=== PATIENT | male | born 1990 | race Caucasian/White ===

== ENCOUNTER 2020-11-10 10:41 | Emergency (ER) | payer MEDICAID ==
[~2020-11-10] VITALS: Ht 172.7 cm; Wt 79.0 kg
[~2020-11-10 10:41] MED LIST: ALPR1TAB2 PO; GABA-533 MT; HYDR-4001 MT; NAPR-677 MT
[2020-11-10] MEDS ORDERED: MORPHINE SULFATE 4 MG/ML CPJ (NOT FOR IM USE) IV STA (11:00)
[2020-11-10] MEDS ORDERED: ONDANSETRON HCL 4MG/2ML INJ IV STA (11:00)
[2020-11-10] MEDS ORDERED: SODIUM CHLORIDE 0.9% 1,000 ML IV ONE (11:00)
[2020-11-10] MEDS ORDERED: PANTOPRAZOLE SODIUM 40 MG/VIAL IV ONE (11:15)
[2020-11-10 11:34] LABS: HEMATOCRIT. 43.2 % (42.0-52.0); HEMOGLOBIN. 14.9 g/dL (14.0-18.0); MEAN CORPUSCULAR HEMOGLOBIN 33.9 pg (28.0-32.0); MEAN PLATELET VOLUME 8.5 fl (7.4-10.4); PLATELET 206 x1000/uL (130-400); RED CELL DISTRIBUTION WIDTH 13.6 % (11.6-14.6)
[2020-11-10 11:43] LABS: CHLORIDE 104 mEq/L (98-107)
[2020-11-10 11:45] LABS: INR 1.1; PROTHROMBIN TIME 11.4 sec (9.6-11.0)
[2020-11-10 11:53] LABS: ETHANOL BLOOD 153 mg/dL
[2020-11-10 12:34] LABS: PLATELET ESTIMATE NORMAL
[2020-11-10] MEDS ORDERED: IOHEXOL-300 100 ML BOTTLE ONE (13:18)
[2020-11-10] MEDS ORDERED: MORPHINE SULFATE 4 MG/ML CPJ (NOT FOR IM USE) IV ONE ×2 (15:15→16:15)
[2020-11-10] MEDS ORDERED: MAGNESIUM/ALUMINUM HYDROXIDE/SIMETHICONE 30ML UDC PO STA (16:11)
[2020-11-10] MEDS ORDERED: VISCOUS LIDOCAINE 2% 15 ML UDC PO STA (16:11)
[2020-11-10] MEDS ORDERED: PROT40 MT (17:13)
[2020-11-10] MEDS ORDERED: HYDR-4346 MT (17:13)
[2020-11-10] MEDS ORDERED: ONDA4TAB5 MT (17:13)
[2020-11-10 18:20] VITALS: BP 134/85
== END 2020-11-10 18:23 | disposition home or self-care (01) ==
LOC: ER 10:41
DX: F10.229 Alcohol dependence with intoxication, unspecified (principal); R10.13 Epigastric pain; R11.2 Nausea with vomiting, unspecified; R19.09 Other intra-abdominal and pelvic swelling, mass and lump; F12.10 Cannabis abuse, uncomplicated; Y90.6 Blood alcohol level of 120-199 mg/100 ml; Z89.422 Acquired absence of other left toe(s); Z88.8 Allergy status to other drugs, medicaments and biological substances
CPT/HCPCS: 36415; 74177; 80053; 80320; 83690; 85025; 85610; 93005; 96361; 96374; 96375; 96376; 99285; C9113; J2270; J2405; J7030; Q9967; G0480

== ENCOUNTER 2020-12-24 20:58 | Emergency (ER) | payer MEDICAID, OTHER ==
[~2020-12-24] VITALS: Ht 175.3 cm; Wt 79.0 kg
[~2020-12-24 20:58] MED LIST changes: +HYDR-4346 MT; +ONDA4TAB5 MT; +PROT40 MT
[2020-12-24] MEDS ORDERED: MORPHINE SULFATE 4 MG/ML CPJ (NOT FOR IM USE) IV STA (23:20)
[2020-12-24] MEDS ORDERED: FAMOTIDINE 20MG/2ML VIAL IV STA (23:20)
[2020-12-24] MEDS ORDERED: ONDANSETRON HCL 4MG/2ML INJ IV STA (23:20)
[2020-12-24] MEDS ORDERED: SODIUM CHLORIDE 0.9% 1,000 ML IV ONE (23:30)
[2020-12-24 23:47] LABS: CLARITY URINE CLEAR (CLEAR); COLOR URINE ORANGE (YELLOW); KETONES URINE 2+ (NEGATIVE); LEUKOCYTE ESTERASE URINE TRACE (NEGATIVE); NITRITE URINE NEGATIVE (NEGATIVE); OCCULT BLOOD URINE 1+ (NEGATIVE); PROTEIN URINE 3+ (NEGATIVE); SPECIFIC GRAVITY URINE 1.032 (1.005-1.030)
[2020-12-25 00:27] LABS: BASOPHILS % 0.7 % (0.0-2.0); EOSINOPHILS % 0.3 % (0.0-5.0); HEMATOCRIT. 41.8 % (42.0-52.0); HEMOGLOBIN. 14.2 g/dL (14.0-18.0); LYMPHOCYTES % 12.1 % (20.0-50.0); MEAN CORPUSCULAR HEMOGLOBIN 33.6 pg (28.0-32.0); MEAN CORPUSCULAR VOLUME 99.1 fL (80.0-94.0); MEAN PLATELET VOLUME 9.1 fl (7.4-10.4); MONOCYTES % 12.6 % (2.0-8.0); NEUTROPHILS % 74.3 % (40.0-76.0); PLATELET 133 x1000/uL (130-400); RED BLOOD CELL COUNT 4.22 mill/uL (4.7-6.1); RED CELL DISTRIBUTION WIDTH 12.8 % (11.6-14.6)
[2020-12-25 00:34] LABS: CHLORIDE 98 mEq/L (98-107)
[2020-12-25] MEDS ORDERED: IBUP-2029 MT (03:33)
[2020-12-25 04:28] VITALS: BP 151/88
== END 2020-12-25 04:30 | disposition home or self-care (01) ==
LOC: ER 20:58
DX: K85.90 Acute pancreatitis without necrosis or infection, unspecified (principal); R11.2 Nausea with vomiting, unspecified; F12.10 Cannabis abuse, uncomplicated; Z98.890 Other specified postprocedural states; Z89.432 Acquired absence of left foot; Z79.899 Other long term (current) drug therapy; Z88.8 Allergy status to other drugs, medicaments and biological substances
CPT/HCPCS: 36415; 80053; 81003; 83690; 85025; 93005; 96361; 96374; 96375; 99284; J2270; J2405; J3490; J7030

== ENCOUNTER 2021-02-07 11:00 | Emergency (ER) | payer MEDICAID ==
[~2021-02-07] VITALS: Ht 167.6 cm; Wt 73.0 kg
[~2021-02-07 11:00] MED LIST changes: +IBUP-2029 MT
[2021-02-07] MEDS ORDERED: SODIUM CHLORIDE 0.9% 1,000 ML IV ONE ×2 (11:30→13:00)
[2021-02-07 12:01] LABS: BASOPHILS % 1.1 % (0.0-2.0); HEMOGLOBIN. 16.2 g/dL (14.0-18.0); LYMPHOCYTES % 33.5 % (20.0-50.0); MEAN CORPUSCULAR HEMOGLOBIN 34.1 pg (28.0-32.0); MEAN CORPUSCULAR VOLUME 96.8 fL (80.0-94.0); MEAN PLATELET VOLUME 7.6 fl (7.4-10.4); MONOCYTES % 4.2 % (2.0-8.0); NEUTROPHILS % 60.2 % (40.0-76.0); PLATELET 500 x1000/uL (130-400); RED BLOOD CELL COUNT 4.75 mill/uL (4.7-6.1); RED CELL DISTRIBUTION WIDTH 12.4 % (11.6-14.6)
[2021-02-07 12:09] LABS: CHLORIDE 109 mEq/L (98-107)
[2021-02-07 12:10] LABS: INR 1.1; PROTHROMBIN TIME 12.1 sec (9.6-11.0)
[2021-02-07 12:25] LABS: ETHANOL BLOOD 461 mg/dL
[2021-02-07] MEDS ORDERED: IOHEXOL-300 100 ML BOTTLE ONE (15:19)
[2021-02-07] MEDS ORDERED: ACETAMINOPHEN 500MG TABLET PO NR (16:00)
[2021-02-07] MEDS ORDERED: PIPERACILLIN/TAZ 3.375G PREMIX 50 ML IV ONE (16:00)
[2021-02-07] MEDS ORDERED: VANCOMYCIN 1 G PREMIX 200 ML IV NR (17:00)
[2021-02-07] MEDS ORDERED: IBUPROFEN 600MG TABLET PO ONE (22:15)
[2021-02-07 22:50] VITALS: BP 132/81
== END 2021-02-07 23:08 | disposition short-term general hospital (02) ==
LOC: ER 11:00
DX: T81.43XA Infection following a procedure, organ and space surgical site, initial encounter (principal); F10.229 Alcohol dependence with intoxication, unspecified; Z90.411 Acquired partial absence of pancreas; Z20.822 Contact with and (suspected) exposure to COVID-19; Y90.8 Blood alcohol level of 240 mg/100 ml or more; Y83.8 Other surgical procedures as the cause of abnormal reaction of the patient, or of later complication, without mention of misadventure at the time of the procedure; Y92.018 Other place in single-family (private) house as the place of occurrence of the external cause
CPT/HCPCS: 36415; 74177; 80053; 80320; 83605; 83690; 85025; 85610; 87040; 87426; 96361; 96365; 96367; 99285; J2543; J3370; J7030; Q9967; Z7610; G0480

== ENCOUNTER 2021-11-26 15:02 | Emergency (ER) | payer OTHER ==
[~2021-11-26] VITALS: Ht 175.3 cm; Wt 61.0 kg
[2021-11-26] MEDS ORDERED: SODIUM CHLORIDE 0.9% 1,000 ML IV ONE (16:45)
[2021-11-26 17:03] LABS: BG BASE EXCESS -8.8 mmol/L (-2.0-2.0); BG CARBOXYHEMOGLOBIN 0.3 % (0.5-1.5); BG DEOXYHEMOGLOBIN 2.5 % (0.0-5.0); BG HCO3 ACT 14.1 mmol/L (22.0-26.0); BG METHEMOGLOBIN 0.3 % (0.0-1.5); BG OXYGEN SATURATION 97.5 % (92.0-98.5); BG OXYHEMOGLOBIN 96.9 % (94.0-97.0); BG PCO2 23.7 mmHg (35.0-45.0); BG PH 7.393 (7.350-7.450); BG PO2 101.8 mmHg (75.0-100.0); BG SAMPLE SITE LEFT BRACHIAL; BG TOTAL HEMOGLOBIN 13.3 g/dL (12.0-18.0); BG VENT MODE ROOM AIR
[2021-11-26 17:15] LABS: BASOPHILS % 0.7 % (0.0-2.0); EOSINOPHILS % 0.4 % (0.0-5.0); HEMATOCRIT. 37.5 % (42.0-52.0); HEMOGLOBIN. 13.3 g/dL (14.0-18.0); MEAN CORPUSCULAR HEMOGLOBIN 33.2 pg (28.0-32.0); MEAN CORPUSCULAR VOLUME 93.4 fL (80.0-94.0); MEAN PLATELET VOLUME 9.5 fl (7.4-10.4); MONOCYTES % 8.1 % (2.0-8.0); NEUTROPHILS % 64.8 % (40.0-76.0); PLATELET 253 x1000/uL (130-400); RED BLOOD CELL COUNT 4.02 mill/uL (4.7-6.1); RED CELL DISTRIBUTION WIDTH 12.1 % (11.6-14.6)
[2021-11-26 17:17] LABS: CLARITY URINE CLEAR (CLEAR); COLOR URINE YELLOW (YELLOW); KETONES URINE 4+ (NEGATIVE); LEUKOCYTE ESTERASE URINE NEGATIVE (NEGATIVE); NITRITE URINE NEGATIVE (NEGATIVE); OCCULT BLOOD URINE NEGATIVE (NEGATIVE); PH URINE 5.5 (4.5-8.0); PROTEIN URINE TRACE (NEGATIVE); SPECIFIC GRAVITY URINE 1.033 (1.005-1.030); UROBILINOGEN URINE 0.2 E.U./dL (0.2-1.0)
[2021-11-26 17:23] LABS: CHLORIDE 100 mEq/L (98-107)
[2021-11-26 17:29] LABS: PHOSPHORUS 1.6 mg/dL (2.5-4.9)
[2021-11-26] MEDS ORDERED: POTASSIUM-SODIUM PHOSPHATE POWDER PACKET PO NR (17:45)
[2021-11-26] MEDS ORDERED: MAGNESIUM 1 G PREMIX 100 ML IV NR (17:45)
[2021-11-26] MEDS ORDERED: HYDROCODONE/ACETAMINOPHEN 5/325MG TABLET PO NR (17:45)
[2021-11-26 18:56] VITALS: BP 116/74
== END 2021-11-26 19:19 | disposition home or self-care (01) ==
LOC: ER 15:02
DX: E11.65 Type 2 diabetes mellitus with hyperglycemia (principal); F12.10 Cannabis abuse, uncomplicated; Z88.1 Allergy status to other antibiotic agents; Z79.899 Other long term (current) drug therapy; Z98.890 Other specified postprocedural states
CPT/HCPCS: 36415; 36600; 80053; 81003; 82375; 82805; 82962; 83735; 84100; 85025; 96365; 99284; J3475; J7030

== ENCOUNTER 2024-03-18 17:53 | Emergency (ER) | payer OTHER ==
[~2024-03-18] VITALS: Ht 170.2 cm; Wt 81.0 kg
[~2024-03-18 17:53] MED LIST changes: -GABA-533 MT; +GABA-534 MT
[2024-03-18 17:58] VITALS: O2SAT 96
[2024-03-18] MEDS: SODIUM CHLORIDE 0.9% 1,000 ML IV ONE (18:42)
[2024-03-18 19:29] VITALS: BP 141/80
[2024-03-18 20:15] LABS: BASOPHILS % 0.5 % (0.0-2.0); EOSINOPHILS % 0.3 % (0.0-5.0); HEMATOCRIT. 48.2 % (42.0-52.0); HEMOGLOBIN. 16.2 g/dL (14.0-18.0); LYMPHOCYTES % 22.1 % (20.0-50.0); MEAN CORPUSCULAR HEMOGLOBIN 31.5 pg (28.0-32.0); MEAN CORPUSCULAR HGB CONC 33.6 g/dL (31.0-37.0); MEAN CORPUSCULAR VOLUME 93.8 fL (80.0-94.0); MEAN PLATELET VOLUME 8.3 fl (7.4-10.4); MONOCYTES % 3.7 % (2.0-8.0); NEUTROPHILS % 73.4 % (40.0-76.0); PLATELET 260 x1000/uL (130-400); RED BLOOD CELL COUNT 5.14 mill/uL (4.7-6.1); RED CELL DISTRIBUTION WIDTH 12.9 % (11.6-14.6); WHITE BLOOD COUNT 7.6 x1000/uL (4.5-11.0)
[2024-03-18 20:18] LABS: CHLORIDE 99 mEq/L (98-107); POTASSIUM 4.5 mEq/L (3.5-5.1); SODIUM 137 mEq/L (136-145)
[2024-03-18 20:19] LABS: CALCIUM 9.5 mg/dL (8.7-10.4); CARBON DIOXIDE 23 mEq/L (21-32)
[2024-03-18 20:24] LABS: GLUCOSE 292 mg/dL (70-105); UREA NITROGEN BLOOD 6 mg/dL (9-23)
[2024-03-18 20:27] LABS: TROPONIN I HIGH SENSITIVITY < 4 ng/L (3.0-53)
[2024-03-18 20:34] LABS: ETHANOL BLOOD 359 mg/dL (<10)
[2024-03-18 21:40] VITALS: PULSE 91; RESP 16; TEMP 98.2
== END 2024-03-18 21:42 | disposition home or self-care (01) ==
LOC: ER 18:03
DX: R41.82 Altered mental status, unspecified (principal); E11.9 Type 2 diabetes mellitus without complications; F12.10 Cannabis abuse, uncomplicated; Z79.899 Other long term (current) drug therapy
CPT/HCPCS: 80048; 80320; 83880; 85025; 84484; 36415; 71045; 93005; 96360; 96361; 99285; J7030; Z7610 ×3; G0480

== ENCOUNTER 2024-08-31 10:01 | Emergency (ER) | payer OTHER ==
[~2024-08-31] VITALS: Ht 177.8 cm; Wt 87.0 kg
[~2024-08-31 10:01] MED LIST changes: -HYDR-4346 MT; -IBUP-2029 MT; +INSU100I28 SQ; -NAPR-677 MT; -ONDA4TAB5 MT
[2024-08-31 10:08] VITALS: O2SAT 100
[2024-08-31] MEDS ORDERED: IOHEXOL-350 100 ML BOTTLE ONE (10:39)
[2024-08-31 11:01] VITALS: TEMP 36.94740
[2024-08-31 11:01] LABS: BASOPHILS % 0.8 % (0.0-2.0); EOSINOPHILS % 2.9 % (0.0-5.0); HEMOGLOBIN. 16.7 g/dL (14.0-18.0); LYMPHOCYTES % 25.3 % (20.0-50.0); MEAN CORPUSCULAR HEMOGLOBIN 31.9 pg (28.0-32.0); MEAN CORPUSCULAR HGB CONC 33.4 g/dL (31.0-37.0); MEAN CORPUSCULAR VOLUME 95.5 fL (80.0-94.0); MEAN PLATELET VOLUME 8.4 fl (7.4-10.4); MONOCYTES % 4.5 % (2.0-8.0); NEUTROPHILS % 66.5 % (40.0-76.0); PLATELET 242 x1000/uL (130-400); RED BLOOD CELL COUNT 5.23 mill/uL (4.7-6.1); RED CELL DISTRIBUTION WIDTH 13.8 % (11.6-14.6); WHITE BLOOD COUNT 7.4 x1000/uL (4.5-11.0)
[2024-08-31 11:07] LABS: CHLORIDE 98 mEq/L (98-107); SODIUM 135 mEq/L (136-145)
[2024-08-31 11:08] LABS: CARBON DIOXIDE 22 mEq/L (21-32)
[2024-08-31 11:09] LABS: CALCIUM 8.3 mg/dL (8.7-10.4)
[2024-08-31 12:16] LABS: CLARITY URINE CLEAR (CLEAR); COLOR URINE YELLOW (YELLOW); GLUCOSE URINE 2+ (NEGATIVE); KETONES URINE NEGATIVE (NEGATIVE); LEUKOCYTE ESTERASE URINE NEGATIVE (NEGATIVE); NITRITE URINE NEGATIVE (NEGATIVE); OCCULT BLOOD URINE NEGATIVE (NEGATIVE); PROTEIN URINE 1+ (NEGATIVE); SPECIFIC GRAVITY URINE 1.008 (1.005-1.030)
[2024-08-31 12:16] LABS: BG BASE EXCESS -2.9 mmol/L (-2.0-3.0); BG DEOXYHEMOGLOBIN 3.3 % (0.0-5.0); BG FRACTION INSPIRED OXYGEN 32; BG HCO3 ACT 23.4 mmol/L (21.0-28.0); BG METHEMOGLOBIN 0.3 % (0.5-1.5); BG OXYGEN SATURATION 96.7 % (94.0-98.0); BG OXYHEMOGLOBIN 95.4 % (94.0-98.0); BG PCO2 46.3 mmHg (35.0-48.0); BG PH 7.322 (7.350-7.450); BG SAMPLE SITE RIGHT RADIAL; BG TOTAL HEMOGLOBIN 16.9 g/dL (13.5-17.5); BG VENT MODE NASAL CANNULA
[2024-08-31 12:51] LABS: *AMPHETAMINES SCREEN URINE NEGATIVE (NEGATIVE); *BARBITURATES SCREEN URINE NEGATIVE (NEGATIVE); *BENZODIAZEPINES SCREEN URINE NEGATIVE (NEGATIVE); *COCAINE SCREEN URINE NEGATIVE (NEGATIVE); CANNABINOID URINE SCREEN NEGATIVE (NEGATIVE); METHADONE URINE SCREEN NEGATIVE (NEGATIVE); OPIATES URINE SCREEN NEGATIVE (NEGATIVE); PHENCYCLIDINE URINE SCREEN NEGATIVE (NEGATIVE)
[2024-08-31 12:52] LABS: ECSTASY MDMA SCREEN URINE NEGATIVE (NEGATIVE)
[2024-08-31 13:16] LABS: SQUAMOUS EPITHELIAL CELL URINE RARE /lpf (RARE/1+)
[2024-08-31 13:18] LABS: BACTERIA URINE NONE SEEN; RBC URINE 0-2 /hpf (0-2); WBC URINE NONE SEEN /hpf (0-2)
[2024-08-31 14:28] VITALS: BP 186/65; PULSE 88; RESP 19; O2SAT 98
[2024-08-31 15:17] LABS: GLUCOSE 261 mg/dL (70-105); UREA NITROGEN BLOOD < 5 mg/dL (9-23)
[2024-08-31 15:21] LABS: TROPONIN I HIGH SENSITIVITY 5 ng/L (3.0-53)
[2024-08-31 15:25] LABS: ETHANOL BLOOD 507 mg/dL (<10)
[2024-08-31 15:30] LABS: CREATININE 1.1 mg/dL (0.6-1.3)
[2024-08-31 16:06] LABS: BETA HYDROXYBUTYRATE 0.5 mMol/L (0.0-0.3)
[2024-08-31 16:24] LABS: INR 0.9; PROTHROMBIN TIME 10.6 sec (9.6-11.0)
== END 2024-08-31 16:12 | disposition home or self-care (01) ==
LOC: ER 10:05
DX: G93.40 Encephalopathy, unspecified (principal); E11.9 Type 2 diabetes mellitus without complications; Z88.8 Allergy status to other drugs, medicaments and biological substances; Z98.890 Other specified postprocedural states; Z79.899 Other long term (current) drug therapy
CPT/HCPCS: 80305; 80048; 81003; 82010; 80320; 82962; 83690; 85025; 85610; 84484; 36415; 71045; 70496; 70498; 70450; 82805; 82375; 93005; 99285; 36600; Q9967; Z7610; G0480